=== PATIENT | female | born 1990 | race Caucasian/White ===

== ENCOUNTER 2019-07-24 15:52 | Emergency (ER) | payer OTHER ==
[~2019-07-24] VITALS: Ht 170.2 cm; Wt 59.0 kg
[2019-07-24 16:05] LABS: URINE BILIRUBIN NEGATIVE (Negative); URINE BLOOD NEGATIVE (Negative); URINE CLARITY CLEAR; URINE COLOR YELLOW; URINE GLUCOSE-RANDOM NEGATIVE (Negative); URINE LEUKOCYTES-REFLEX NEGATIVE (Negative); URINE NITRITE-REFLEX NEGATIVE (Negative); URINE PROTEIN TRACE (Negative); URINE UROBILINOGEN 0.2 E.U./dl (0.2-1.0)
[2019-07-24] MEDS ORDERED: VALIUM5 MG PO (16:05)
[2019-07-24 16:06] LABS: URINE KETONES 3+ (Negative)
[2019-07-24 16:41] LABS: HEMATOCRIT 37.1 % (37.0-47.0); HEMOGLOBIN 12.6 gm/dL (12.0-15.0); MCH 29.6 pg (26.0-34.0); MPV 8.1 fl. (7.2-11.1); NUCLEATED RBCS 0 /100WBC; PLATELET COUNT* 244 thou/uL (150-400); RBC 4.27 mil/uL (4.20-5.00); RDW-CV 12.8 % (10.5-14.5); WBC 15.2 thou/uL (4.0-11.0)
[2019-07-24 16:57] LABS: CALCIUM 8.2 mg/dL (8.5-10.1); CREATININE 0.6 mg/dL (0.6-1.3); POTASSIUM 3.4 mmol/L (3.5-5.1)
[2019-07-24 17:02] LABS: ALBUMIN 4.1 g/dL (3.4-5.0); TOTAL BILIRUBIN 0.8 mg/dL (<0.1-1.0); TOTAL PROTEIN 7.8 g/dL (6.4-8.2)
[2019-07-24 17:17] LABS: ABSOLUTE LYMPHOCYTES 0.5 thou/uL (0.8-5.3); ABSOLUTE MONOCYTES 0.3 thou/uL (0.0-1.2); ABSOLUTE NEUTROPHILS 14.4 thou/uL (1.6-8.1); PLATELET ESTIMATE ADEQUATE
[2019-07-24] MEDS ORDERED: FLAGYL500 M1 PO (17:31)
[2019-07-24] MEDS ORDERED: NABUMETONE 750750 M1 PO (17:31)
[2019-07-24] MEDS ORDERED: ONDANSETRON HCL4 M2 PO (17:31)
[2019-07-24 17:49] VITALS: BP 117/61
== END 2019-07-24 17:51 | disposition home or self-care (01) ==
LOC: M.ERS 15:52
PROVIDERS: Nurse Practitioner Family
DX: I88.0 Nonspecific mesenteric lymphadenitis (principal); R11.2 Nausea with vomiting, unspecified; Z88.8 Allergy status to other drugs, medicaments and biological substances

== ENCOUNTER → 2021-08-20 | Outpatient (CLI) | payer OTHER ==
[~2021-08-20] MED LIST: FLAGYL500 M1 PO; NABUMETONE 750750 M1 PO; ONDANSETRON HCL4 M2 PO; VALIUM5 MG PO
== END ==
LOC: M.RAD 16:41
PROVIDERS: ATTEND Nurse Practitioner Family
DX: S69.91XA Unspecified injury of right wrist, hand and finger(s), initial encounter (principal); X58.XXXA Exposure to other specified factors, initial encounter; Y93.89 Activity, other specified; Y92.89 Other specified places as the place of occurrence of the external cause; Y99.8 Other external cause status